=== PATIENT | female | born 1955 ===

== ENCOUNTER 2016-10-19 14:58 | Emergency (ER) | payer MEDICARE, MEDICAID ==
[~2016-10-19 14:58] MED LIST: ASA CHILDREN'S81 MG PO; ATIVAN1 MG PO; COZAAR50 MG PO; CRESTOR20 MG PO; DEMADEX20 MG PO; ISOSORBIDE MONO30 MG PO; LANTUS100 UNITS/ SQ; LEVAQUIN500 MG PO; MAALOX DPS30 ML PO; METOPROLOL TART25 MG PO; NEURONTIN DPS300 MG PO; NORVASC DPS10 MG PO; NOVOLOG100 UNIT/2 SQ; PERCOCET 5-3251 EACH PO; PHOS-LO667 MG PO; PREDNISONE10 MG PO; PRILOSEC DPS20 MG PO; PROAIR HFA8.5 GM IH; PROVENTIL HFA6.7 GM IH; PROVENTIL2.5 MG/0.5 IH; TYLENOL325 MG PO; VOLTAREN 1% GE100 GM TP; ZITHROMAX250 MG PO
--- NOTE | 2016-10-21 11:45 | ER ---
ADMIT: 10/19/2016 RM/LOC: ER [facility] MR#: [id number] [address] [id number] FRANCOISE RUBIO [address] [place] [address] Emergency Room Report SEX: F AGE: 60 : 1955 DATE: 10/19/2016 ADDENDUM: 60-year-old, female coming in with chest pain. She only gets this after she has had dialysis. Usually goes away, did not today. She has a little chronic anemia at 10. Her troponin, chest x-ray, EKG are negative. I gave her couple of Edison here, that took all the pain away. Sent her home with 20 and she needs follow up with her doctor next week. I think she has had this evaluated before. She has no pneumonia or other underlying findings. CONDITION ON DISCHARGE: Improved. Perez Foley MD/ addison JOB #: [id number] CC: Perez Foley MD, Attending Physician Ledy Pierre MD, Family Physician
[2017-04-21] MEDS ORDERED: SYMBICORT80 MCG/6.9 IH (10:31)
[2017-04-21] MEDS ORDERED: CULTURELLE1 CAP PO (10:31)
[2017-04-21] MEDS ORDERED: PROVENTIL HFA6.7 GM IH (10:32)
== END 2016-10-19 17:30 | disposition home or self-care (01) ==
LOC: ER 14:58
DX: R07.89 Other chest pain (principal); E11.9 Type 2 diabetes mellitus without complications; I10 Essential (primary) hypertension; E66.01 Morbid (severe) obesity due to excess calories; Z79.4 Long term (current) use of insulin; Z79.899 Other long term (current) drug therapy